=== PATIENT | female | born 1990 | race Hispanic/Latino ===

== ENCOUNTER 2016-04-14 17:10 | Emergency (ER) | payer OTHER ==
[~2016-04-14] VITALS: Ht 154.9 cm; Wt 100.0 kg
[~2016-04-14 17:10] MED LIST: LAMO150T2 PO
[2016-04-14 17:12] VITALS: BP 117/68; PULSE 70; RESP 16; O2SAT 98
[2016-04-14 18:01] LABS: BASOPHILS % (AUTO) 0.2 % (0-3); EOSINOPHILS % (AUTO) 2.1 % (0-5); MONOCYTES % (AUTO) 7.2 % (4-12); Mean Corpuscular Hemoglobin 30.6 pg (27.0-35.0); Mean Corpuscular Volume 87.7 fL (81-100); NEUTROPHILS % (AUTO) 65.9 % (40-74); Platelet Count 297 bil/L (150-400)
--- NOTE | 2016-04-14 18:05 | ED.REPORT ---
HPI- Female Date of Service Apr 14, 2016 ED Provider: Shanta Oneal MD Pt is a 25 y.o. female on Lamictal secondary to a hx of seizures, last known 2 years ago, who presents to the ED c/o suprapubic abdominal cramping onset 3 weeks ago and worsening yesterday. Pt was seen today at a clinic for a routine US, per pt they performed both transvaginal and abdominal US and stated that they "didn't see anything". They recommended the pt be seen by her PCP for follow-up but the pt states that her PCP office said she couldn't be seen until May 12 and they recommended she come to the ED .Pt denies vaginal bleeding , nausea, vomiting, and urinary symptoms. She reports a recent fever associated with a URI and dizziness with standing. Pt is Rh positive. Nursing Notes Stated Complaint: CONTRACTIONS AND CRAMPS Chief Complaint: Female Abdominal Pain Nursing Notes Reviewed: Yes Allergies: Coded Allergies: No Known Allergies (Verified , 04/14/16) Scheduled Lamotrigine (Lamotrigine) 150 Mg Tablet 150 MG PO BID General Time Seen by MD: 18:04 Chief Complaint Abdominal pain... (Suprapubic) Hx Obtained From: Patient Arrived By: Walk-in Sudden in Onset?: Yes Onset Occurred: More than a week ago... (3 weeks) Context of Onset: , 1st trimester Symptom Duration: Since onset Location: : Suprapubic Quality: Cramping, Painful Severity: Current: Severe RH Status / Blood Type: Rh Positive Similar Sx Previous: No Past Medical History Past Medical History Notes: Rh positive Past Medical History Epilepsy Past Surgical History Reports: Smoking History Never Smoker Social History Alcohol Use: Denies alcohol use Other Social History: Ambulatory Status Independent Review of Systems GI: Reports: Abdominal pain, Denies: Nausea, Vomiting Female: Reports: , Denies: Dysuria, Hematuria, Urinary frequency, Urinary urgency, Urination decreased, Urination increased, Vaginal bleeding - abnl Neurologic: Reports: Dizziness Complete sys rev & neg: except as marked. Physical Exam Initial Vital Signs Vital Signs (First) Date Time Temp Pulse Resp B/P Pulse Ox O2 Delivery O2 Flow Rate FiO2 04/14/16 17:12 36 70 16 117/68 98 Room Air Initial VS: Reviewed, Vital signs normal Head / Eyes: Atraumatic, Normocephalic Respiratory: Breath sounds normal, Clear to auscultation, No respiratory distress Cardiovascular: Regular rate & rhythm, Heart sounds normal, Intact distal pulses Extremities: Vascular intact, Neuro intact Skin: Warm, Dry, No cyanosis Neurologic: Alert, Oriented, Nonfocal Psychiatric: Mood/affect normal, Behavior normal, Normal thought content Female Genitourinary: Exam deferred General/Constitutional: Awake, Alert, Well appearing, Well developed, Well hydrated, Well nourished Appearance / Presentation: Positive: Uncomfortable Abdomen: Atraumatic, Soft, No distention Tenderness/Guarding/Rebound: Positive: Tender RLQ..., Tender suprapubic Interpretation & Diagnostics Lab Results Interpretation Result Diagram: 04/14/16 1755 04/14/16 1755 Test 04/14/16 17:48 04/14/16 17:49 04/14/16 17:55 Hold Urine Received (Received) Urine Color Yellow (YELLOW) Urine Appearance Hazy (CLEAR,HAZY) Urine pH 6.5 (5.0-8.0) Urine Specific Lena 1.025 (1.003-1.035) Urine Protein Negativemg/dL (NEG,TRACE) Urine Glucose (UA) Negativemg/dL (NEGATIVE) Urine Ketones Negativemg/dL (NEGATIVE) Urine Occult Blood Small (NEGATIVE) Urine Nitrite Negative (NEGATIVE) Urine Bilirubin Negative (NEGATIVE) Urine Urobilinogen Normalmg/dL (NORMAL) Urine Leukocyte Esterase Negative (NEGATIVE) Urine RBC 0-2/hpf (0-2) Urine WBC 0-5/hpf (0-5) Urine Epithelial Cells Moderate/hpf (NONE-MOD) Urine Crystals None seen (NONE SEEN) Urine Bacteria Moderate/hpf (NONE-FEW) Urine Hyaline Casts None/lpf (NONE) Urine Granular Casts None seen (NONE SEEN) Urine Waxy Casts None seen (NONE SEEN) Urine Red Blood Cell Casts None seen (NONE SEEN) Urine White Blood Cell Casts None seen (NONE SEEN) Urine Mucus Present (None Seen) Urine Trichomonas None seen (NONE SEEN) Urine Yeast None (NONE SEEN) Urinalysis Comment None Urine Culture Reflexed Indicated White Blood Count 8.2th/mm3 (3.8-10.1) Red Blood Count 4.08mil/mm3 (3.90-5.20) Hemoglobin 12.5g/dL (12.0-15.6) Hematocrit 35.8% (35.0-46.0) Mean Corpuscular Volume 87.7fL (81-100) Mean Corpuscular Hemoglobin 30.6pg (27.0-35.0) Mean Corpuscular Hemoglobin Concent 34.9% (32.0-37.0) Red Cell Distribution Width 12.3% (12.3-15.4) Platelet Count 297bil/L (150-400) Neutrophils (%) (Auto) 65.9% (40-74) Lymphocytes (%) (Auto) 24.1% (14-46) Monocytes (%) (Auto) 7.2% (4-12) Eosinophils (%) (Auto) 2.1% (0-5) Basophils (%) (Auto) 0.2% (0-3) Sodium Level 135mEq/L (134-144) Potassium Level 4.1mEq/L (3.5-5.2) Chloride Level 103mEq/L (97-108) Carbon Dioxide Level 19mmol/L (18-29) Blood Urea Nitrogen 7mg/dL (6-20) Creatinine 0.31mg/dL (0.57-1.00) Estimat Glomerular Filtration Rate 368mL/min (>59) Glucose Level 133mg/dL (60-99) Calcium Level 9.1mg/dL (8.5-10.1) HCG Beta Subunit [id number]/mL Hold Amador Top Tube Received (Received) Re-Eval/Medical Decision Med Decision/Clinical Course The patient presents with abdominal pain and cramping. She had an ultrasound in the community referred to the emergency department to rule out an ectopic. Her ultrasound here shows an IUP and a right ovarian cyst which would explain her pain. The patient has a follow-up appointment with Dr. Joe. Source of Hx: Old records Re-Evaluation/Progress : Time of Eval: 20:00 Re-Evaluation/Progress Note: Pt rechecked. Discussed US results and plan for discharge, pt understands and agrees with plan. Counseled Regarding: Diagnosis, Lab results, Need for follow-up, When/why to return to ED Discharge & Departure Impression: Primary Impression: Intrauterine Additional Impression: Ovarian cyst Laterality: right Qualified Code: N83.20 - Unspecified ovarian cysts Disposition: Home Discharge Condition All VS Reviewed: Yes Condition: Stable Patient Instructions: Ovarian Cyst (ED) Additional Instructions: Your pain and cramping is most likely due to your right ovarian cyst. Take Tylenol as needed for pain. Keep your follow-up appointment on the . Seek care if you begin to experience excessive bleeding, fever, or any new or concerning symptoms. Referrals: Bree Kingsley (PCP) Tanner Attestation Portions of this note were transcribed by Dnei Hassan. I, Dr. Oneal personally performed the history, physical exam and medical decision-making; I reviewed and confirmed the accuracy of the information in the transcribed note. Signed by: Tanner Leos, 04/14/2016 and 2005. copies to: Bree Kingsley Jena M MD Apr 14, 2016 18:05 DENI HASSAN Apr 14, 2016 18:19
[2016-04-14] MEDS ORDERED: HYDROmorphone 0.5 mg/0.5 mL iSecure Syringe IVPUSH PRN (18:15)
[2016-04-14] MEDS ORDERED: 0.9% Sodium Chloride 1,000 ML IV ONE (18:15)
[2016-04-14] MEDS ORDERED: HYDROcodone-APAP 5-325 mg Tablet PO ONE (18:40)
[2016-04-14 20:00] LABS: APPEARANCE,URINE HAZY (CLEAR,HAZY); COLOR,URINE YELLOW (YELLOW); OCCULT BLOOD,URINE SMALL (NEGATIVE); PH,URINE 6.5 (5.0-8.0); UROBILINOGEN,URINE NORMAL (NORMAL)
[2016-04-14 20:10] VITALS: BP 112/72; PULSE 71; RESP 16; O2SAT 97
--- NOTE | 2016-04-14 20:28 | DRSVH ---
PROCEDURE: US OB<14 WKS+OB TRANSVAG INDICATIONS: suprapubic pain OUTSIDE/PRIOR DATING DATA: Last menstrual period (LMP): Not available. LMP-based estimated date of delivery (JARETT): Not available. First dating scan (date and location): 04/14/2016. Estimated date of delivery (JARETT) from first dating scan: 11/27/2016. TECHNIQUE: Real-time scanning was performed of the fetus and maternal pelvic organs, with image documentation. Endovaginal scanning was also performed to better visualize the fetus and maternal ovaries. COMPARISON: [facility], US, PELVIS SONO TRANSVAGINAL (PNL), 09/28/2013, 15:24. [facility], US, US OB<14 WKS+OB TRANSVAG, 04/03/2016, 10:55. FINDINGS: Embryo: There is a single living intrauterine gestation. heart rate is 150 bpm. The patient ge stational age is 7 weeks and 5 days. Comments: The yolk sac is not well-seen. No perigestational bleeds. Measurement variability in dating: +/- 4 weeks by LMP, +/- 7 days by mean sac diameter (use before 6 weeks gestation if crown-rump length not able to be measured), +/- 5 days by crown-rump length (6-12 weeks gestation). Maternal organs: There is a 3.0 x 2.9 x 3.0 cm in the right ovarian cyst. IMPRESSION: 1. A single living IUP with the estimated gestational age of 7 weeks 5 days. Ultrasound JARETT 11/27/2016 . 2. A 3 cm right ovarian cyst. Dictated by: Yosef Horner M.D. on 04/14/2016 at 20:26 Approved by: Yosef Horner M.D. on 04/14/2016 at 20:26
== END 2016-04-14 20:11 | disposition home or self-care (01) ==
LOC: SED 17:10
DX: O34.80 Maternal care for other abnormalities of pelvic organs, unspecified trimester (principal); N83.201 Unspecified ovarian cyst, right side; G40.909 Epilepsy, unspecified, not intractable, without status epilepticus; Z3A.00 Weeks of gestation of pregnancy not specified

== ENCOUNTER 2016-11-18 05:15 | Inpatient (IN) | payer OTHER ==
[~2016-11-18] VITALS: Ht 154.9 cm; Wt 107.5 kg
[2016-11-18] MEDS ORDERED: PREN1TAB25 PO (05:48)
[2016-11-18] MEDS ORDERED: Lactated Ringer's 1,000 ML IV SCH ×2 (06:44→10:08)
[2016-11-18] MEDS ORDERED: Methylergonovine 0.2 mg/mL Inj IM PRN ×2 (06:45→10:10)
[2016-11-18] MEDS ORDERED: Sodium Citrate-Citric Acid 15 mL Solution PO SCH (06:45)
[2016-11-18] MEDS ORDERED: Carboprost 250 mCg/mL Inj IM PRN ×2 (06:45→10:10)
[2016-11-18] MEDS ORDERED: CeFAZolin Inj 2 GM in IV Premix 1 EACH IV SCH (06:45)
[2016-11-18] MEDS ORDERED: Hemorrhage Kit, Post Partum XX ONE ×2 (06:45→10:10)
[2016-11-18] MEDS ORDERED: Oxytocin 10 Unit/mL Inj IM PRN ×2 (06:45→10:10)
[2016-11-18 07:07] LABS: Mean Corpuscular Hemoglobin 28.1 pg (27.0-35.0); Mean Corpuscular Volume 83.9 fL (81-100)
--- NOTE | 2016-11-18 07:23 | PCM.HPANE ---
Patient Data Surgeon Admitting Provider:Emmanuel Jackson MD Attending Provider:Emmanuel Jackson MD Primary Care Physician:Kaylyn Joe MD Other Provider:Yoni Washington Anesthesia Reason for Visit Term TERM Ht/WT & BMI Body Mass Index Allergies Coded Allergies: No Known Allergies (Verified , 04/14/16) Past Anesthesia History Anesthesia History: Positive for:: Anesthesia Reactions (rash reaction to meds during C sections/ difficulty getting numb), Denies:: Fam Anesthesia Reaction, Fam Malignant Hypertherm, Malignant Hyperthermia Diabetes History Hx Diabetes?: No MRSA MRSA: No Medications Hypertension Medication: No Home Meds Incl Beta Mike: No Reported Medications Vit#96/Ferrous Fum/FA ( Tablet)1 Each Tablet1 Each PO DAILY 11/18/16 Lamotrigine 150 Mg [id number] Mg PO BID Ref 0 01/14/16 History History of ENT Problems?: No HEENT History: Denies:: Cataracts Dysphagia Hearing Problem Sinus Problem TMJ Denture Type: None Teeth Condition: Within Normal Limits Hx of Heart Problems?: No Cardiovascular History: Positive for:: Heart Murmur (since childhood "normal") Denies:: AICD Congestive Heart Failure Hypertension Pacemaker Rheumatic Fever Hx of Respiratory Problem?: No Respiratory History: Denies:: Asthma COPD Emphysema Oxygen Administration Pneumonia Tuberculosis Use of C-PAP Machine Hx Neurologic Problems?: Yes Neurological History: Positive for:: Seizures (Epilepsy (on Lamictal) last seizure 2012) Denies:: CVA Dementia Dizziness Headaches Multiple Sclerosis Parkinson's Disease Hx of GI Problems?: Yes Gastrointestinal History: Positive for:: Gastroesphageal Reflux Hx of Problems?: No Genitourinary History: Denies:: Kidney Stones Urinary Tract Infection Female Hx: Denies:: Currently Problems with Breasts? Skin History: Denies:: History Skin Disorders? Pressure Ulcers Hx Musculoskeletal Problems?: Yes Musculoskeletal History: Positive for:: Musculoskeletal Trauma (left carpal tunnel current admission problem) Denies:: Back Injury Joint Replacement Systemic Lupus Hx of Psycho/Social Problems?: No Psycho Social History: Denies:: Anxiety Hx Depression Hx Surgeries?: Yes (c sections x 2, mike, right carpal tunnel) Hx Any Other Health Problems?: Yes Other History: Positive for:: Hospitalization (Epilepsy (last seizure in 2011) ) Denies:: Cancer Endocrine Disease Thyroid Disease History Blood Transfusions: Denies:: Blood Transfusions Hx Diabetes: No Hx Alcohol Use: NoHx Substance Use: No Smoking Status: Never Smoker Have You Smoked inLast 12 mo: No Stop/Bang Treated for Sleep Apnea?: No Do You Have a CPAP Machine?: No Risk Assessment Category Category 1A: Patient has history of documented sleep apnea, and HAS NOT received any narcotic, sedative or anesthesia administration during this stay. Category 1B: Patient has history of documented sleep apnea, and HAS received any narcotic , sedative or anesthesia administration during this stay Category 2: Patient has SUSPECTED Obstructive Sleep Apnea, and HAS received any narcotic , sedative or anesthesia administration during this stay. Category 3: Patient has SUSPECTED Obstructive Sleep Apnea and HAS NOT received narcotic, sedative or anesthesia administration during this stay. Category 4: Outpatient in Procedural Areas with known sleep apnea or who screen positive for High Risk via the STOP/BANG questionnaire. Exam Exam General Appearance: Alert, Oriented X3, Cooperative, No Acute Distress HEENT/AIRWAY: MP 2 Lungs: Clear to Auscultation, Normal Air Movement Heart: Exam Unremarkable, Regular Rate/Rhythm, No Murmurs/Rubs/Gallops Meds/Labs/Diagnostics Labs Test 11/18/16 06:53 White Blood Count 6.6th/mm3 (3.8-10.1) Red Blood Count 3.92mil/mm3 (3.90-5.20) Hemoglobin 11.0g/dL (12.0-15.6) Hematocrit 32.9% (35.0-46.0) Mean Corpuscular Volume 83.9fL (81-100) Mean Corpuscular Hemoglobin 28.1pg (27.0-35.0) Mean Corpuscular Hemoglobin Concent 33.4% (32.0-37.0) Red Cell Distribution Width 13.0% (12.3-15.4) Platelet Count 238bil/L (150-400) Plan Impression Patient chart reviewed, patient interviewed and anesthestic plan with risks, benefits, and alternatives discussed, and informed consent obtained. ASA Physical Status: ASA3 Severe Disease (bmi 45) Anesthetic Plan: SAB Bene/Risks/Altern/Consents: Yes HP Complete Prior to Induction: Yes Other discussed early resolution of spinals and that we can add epi/duramorph to local anesthetic and have other pain medications ready if spinal were to wear off early Ho Fritz MD Nov 18, 2016 07:22
[2016-11-18] MEDS ORDERED: fentaNYL-PF 50 mCg/mL 2 mL Inj IVPUSH PRN (07:25)
[2016-11-18] MEDS ORDERED: Atropine 0.4 mg/mL Inj IV PRN (07:25)
[2016-11-18] MEDS ORDERED: EPHEDrine Sulfate 50 mg/mL Inj IVPUSH PRN (07:25)
[2016-11-18] MEDS ORDERED: Oxytocin 30 Units/500 mL LR 30 UNITS in IV Premix 1 EACH IV PRN (10:10)
[2016-11-18] MEDS ORDERED: Sodium Chloride LOK Flush 10 mL Syringe IVFLUSH PRN (10:10)
[2016-11-18] MEDS ORDERED: diphenhydrAMINE 50 mg Capsule PO PRN (10:10)
[2016-11-18] MEDS ORDERED: Acetaminophen IV 1,000 MG in IV Premix 1 EACH IV PRN (10:10)
[2016-11-18] MEDS ORDERED: LANOlin HPA 7 Gm Ointment TOPICAL PRN (10:10)
[2016-11-18] MEDS ORDERED: LAMO150T2 PO (10:16)
[2016-11-18] MEDS ORDERED: Succinylcholine Chloride 20 mg/mL 5 mL Inj ONE (12:17)
[2016-11-18] MEDS ORDERED: Ondansetron 2 mg/mL 2 mL Inj ONE (12:17)
[2016-11-18] MEDS ORDERED: fentaNYL-PF 50 mCg/mL 2 mL Inj ONE (12:17)
[2016-11-18] MEDS ORDERED: Morphine PF 1 mg/mL 10 mL Inj ONE (12:17)
--- NOTE | 2016-11-18 13:39 | PCM.ANEP1 ---
Post Anesthesia PACU Phase 1 Assessment Anesthetic Administered: GA Level of Alertness: Awake, talking BARRAZA's with Equal Strength: Yes Pain: No Nausea or Vomiting: No CV Function & Hydration Stable: Yes Airway Device: NONE Oxygen Delivery: Nasal Cannula Lungs: Clear to Auscultation, Normal Air Movement Dermatome Level: L3,4 (Thigh) PACU Phase 2 Assessment Complications: No Follow up Care: No Patient Instructions Provided: N/A Ho Fritz MD Nov 18, 2016 13:39
--- NOTE | 2016-11-18 15:41 | OP ---
[address] [address] OPERATIVE REPORT PATIENT: PAPITO BEAL : 1990 MR#: [id number] ADMIT: 11/18/2016 JOB ID: [id number] DATE OF SURGERY: 11/18/2016 PROCEDURE: 1. Repeat low transverse section. 2. Bilateral tubal ligation. PREOPERATIVE DIAGNOSIS(ES): 1. Term at 39 weeks. 2. History of two prior deliveries. 3. Desires sterilization. POSTOPERATIVE DIAGNOSIS(ES): 1. Term at 39 weeks. 2. History of two prior deliveries. 3. Desires sterilization. SURGEON: Emmanuel Jackson MD. PHYSICIAN/INTERNIST: Kaylyn Joe MD. Assistance of Dr. Joe was necessary in this case because of severe adhesions and the need for client services assistant's help in lysis of adhesions, providing proper exposure and visualization of anatomic structures and delivery of the . ANESTHESIOLOGIST: Ho Fritz MD. ANESTHESIA: Spinal. ESTIMATED BLOOD LOSS: 700 mL. ESTIMATED URINE OUTPUT: 400 mL. FLUIDS: 1100 mL of lactated Ringer. COMPLICATIONS: None. FINDINGS: Delivered a female with weight 9 pounds and 15 ounces, Apgars 9 at one minute and 9 at five minutes. The patient had extensive adhesions between the bladder and lower uterine segment, as well as between the lower uterine segment and anterior abdominal wall. DESCRIPTION OF PROCEDURE: The patient was brought to the operating room, where she underwent spinal anesthesia without difficulty. The patient was placed in a dorsal supine position with a leftward tilt. She was prepped and draped in the usual surgical fashion. The patient received preoperative antibiotics. Time-out was performed verifying correct patient, correct procedure. Pfannenstiel skin incision was made with a scalpel over the prior scar and carried down to the underlying layer of rectus muscle fascia using Bovie. The rectus muscle fascia was incised in the midline with the Bovie and the incision was then laterally extended using Bovie and Steen scissors. The upper aspect of the incision was grasped with two Keyon clamps, tented up, and rectus muscle fascia was found to be adherent to the underlying rectus muscle. It was using Bovie, moist laparotomy sponge, Metzenbaum scissors, Steen scissors, scalpel. After appropriate dissection was completed superiorly, using two Keyon clamps the anterior aspect of the incision was grasped and the rectus muscle fascia was from the underlying rectus muscle using Bovie and Steen scissors. The lysis of adhesions was provided in the middle sagittal plane. The peritoneum was entered. Using Metzenbaum scissors the dissection was done from the lower uterine segment the bladder from it. When the bladder was brought down sufficiently, the bladder blade was introduced and lower segment transverse uterine incision was made with a scalpel and extended laterally with the bandage scissors. The head of the was identified. The bladder blade was removed and with a fundal pressure, male was atraumatically delivered. Delayed cord clamping was allowed for 60 seconds. The cord was clamped and cut, and the was handed off to the awaiting choral teacher. The cord blood was sent. The uterus was removed by applying fundal massage and gentle traction and discarded. The uterus was exteriorized and cleared from all the blood clots and debris with a dry laparotomy sponge. The uterine incision was repaired with two layers of Monocryl. Bilateral tubal ligation was performed. The patient's right tube was identified, tented up. The mesosalpinx was perforated with Bovie, and two 0 chromic sutures were passed through it. The tube was double suture ligated proximally and distally 3 cm from the cornua of the uterus and about 4 cm from the proximal and distal parts of the excision. The fallopian tube was excised and sent to Pathology. Good hemostasis was achieved. The same was done on the patient's contralateral side. The pelvis was irrigated with warm normal saline, and the uterus was repositioned back into the pelvis. Slight oozing from the dissection from the lower uterine segment was controlled with application of the FloSeal. The rectus muscles were reapproximated in the midline with three interrupted 2-0 Vicryl sutures. The rectus muscle fascia was closed with 0 Vicryl. Four interrupted 3-0 Vicryl sutures were placed to reapproximate Torres fascia and subcuticular tissue. The skin was closed with belinda. Hemostatic dressing was applied. The patient was repositioned back into the supine position. She tolerated the procedure well and was transferred to the recovery room in stable condition.
[2016-11-18] MEDS: hydrOXYzine Pamoate 25 mg Capsule PO PRN (19:50)
[2016-11-18] MEDS ORDERED: oxyCODONE-Acetamin 5-325 mg Tablet PO PRN (21:10)
[2016-11-19 07:25] LABS: Mean Corpuscular Hemoglobin 28.8 pg (27.0-35.0); Mean Corpuscular Volume 83.3 fL (81-100)
--- NOTE | 2016-11-19 08:03 | PCM.PNOBPP ---
Subjective Date of Service Nov 19, 2016 Post : Repeat Ceserean Delivery Visit History 26 yo now who presented at 39.2 GA for repeat C/S. Subjective Post op day #1. Having increased incisional this AM. Denies any n/v or fevers. Has not been able to pass flatus yet. She is otherwise happy with the baby and well and was able to tolerate PO intake last night. Lochia: Normal Pain Management: PO pain meds, Surgical Pain Not Controlled (moderately uncontrolled) Gastrointestinal: No N/V Postop Activity: Ambulating in Room Only Group B Strep Results: Not done Rubella: Immune Blood Type: O (positive) RH Type: Positive Labs Laboratory Tests 11/19/16 07:02: White Blood Count 9.5, Red Blood Count 3.71, Hemoglobin 10.7, Hematocrit 30.9, Mean Corpuscular Volume 83.3, Mean Corpuscular Hemoglobin 28.8, Mean Corpuscular Hemoglobin Concent 34.6, Red Cell Distribution Width 13.2, Platelet Count 226 Exam Vital Signs Vital Signs 111/75 75 p 18 36.4c Vital Signs: VS reviewed, stable Exam Abdomen: Fundus firm, Abdomen appropriately tender, Other (Mildly distended) : Voiding without difficulty Extremities: No tenderness/swelling, No edema Lungs: Clear to Auscultation, Normal Air Movement Heart: Regular Rate/Rhythm, No Murmurs/Rubs/Gallops General: Alert, Oriented X3, Cooperative, Mild Distress (pain) Surgical Wound : Incision General Appearence: Well Approximated, Wound under dressing Dressing & Drainage Status: Dry & Intact, No Odor OB Post Assessment/Plan Problems: (1) delivery due to maternal disorder, delivered, current hospitalization Status: Acute ICD Code: O99.89 (2) Sterilization Status: Acute ICD Code: Z30.2 Pain Evaluation: Pain not Controlled Post plan: Continue routine post care, Discharge home tomorrow Plan: Encourage early ambulation Attending Statement I saw patient and examined her. I agree with above plan. Giovany Harris DO Nov 19, 2016 08:03 Arlet Robledo MD Nov 22, 2016 14:15
[2016-11-19] MEDS: Ascorbic Acid 500 mg Tablet PO SCH (08:06)
[2016-11-19] MEDS: lamoTRIgine 100 mg Tablet PO SCH ×2 (08:24→20:24)
[2016-11-19] MEDS: hydrOXYzine Pamoate 25 mg Capsule PO PRN (21:36)
[2016-11-20] MEDS: hydrOXYzine Pamoate 25 mg Capsule PO PRN ×2 (03:04→09:14)
[2016-11-20] MEDS: Ascorbic Acid 500 mg Tablet PO SCH (08:14)
--- NOTE | 2016-11-20 08:25 | PCM.DIOB ---
Bailey Gallagher DO 11/20/16 0825: Obstetrical Disch Instruction Date of Service: Nov 20, 2016 Dates of Hospitalization Date of Hospital Admission Nov 18, 2016 at 05:15 Providers Admitting Physician: Emmanuel Jackson MD Primary Care Physician: Kaylyn Jeo MD Attending Physician: Emmanuel Jackson MD Discharge Diagnosis Discharge Diagnosis delivery Term at 39 weeks. History of two prior deliveries. Scheduled sterilization Post Operative diagnosis delivery Term at 39 weeks. History of two prior deliveries. Scheduled sterilization Problems: (1) delivery due to maternal disorder, delivered, current hospitalization Status: Acute ICD Code: O99.89 (2) Sterilization Status: Acute ICD Code: Z30.2 Diet Discharge Diet: No restrictions Activity Discharge Activity-General: Pelvic Rest for 6 weeks, Try not to overdue, Balance rest and activity, Ice incision 3-5 time/day for 20min, Activity as pain allows, Activity as energy allows, No lifting >10 pounds for 4-6 weeks Dressing and Incisional Care Dressing Care: Change soiled dressing Hygiene: May shower, DO NOT soak incision under water, NO bathtub, hot tub or whirlpool, Sitz bath Additional Instructions Discharge Instructions Continue your vitamin. Do not take more pain medication (Vicodin) than is necessary -- less is better. Vicodin pills have Tylenol (acetaminophen) in them at 325mg per pill. Do not take Tylenol in addition to your pain medication but should take one or the other. Both iron and Vicodin can give you constipation so you have also been given a prescription for docusate to keep you regular. Be sure to follow up in [address] Jackson at [facility] and then again in [address] Joe. Pelvic rest for 6 weeks (nothing per vagina including intercourse, tampons) If you have a fever greater than 100.4, please call [facility]. There is always someone composition siding worker to talk to. If you have an increase in bleeding, call [facility]. If you have a lot of bleeding suddenly, especially if you have symptoms of dizziness & weakness with it, get emergency help. When you see [facility] in two weeks, you will be informed of the results of all the labs. If you start experiencing extreme depression, especially if you feel that you are a danger to yourself or your family, seek emergency help. You have been through a lot -- BE SURE TO TAKE CARE OF YOURSELF. Follow Up Plan Follow Up Plan [address] Jackson and [address] Joe Call your provider for: Fever or Chills, Shortness of breath, Heavy vaginal bleeding, Heavy bleeding, Epigastric pain, Excessive constipation, Vaginal discomfort, Red painful breasts Arlet Robledo MD 11/22/16 1432: Obstetrical Disch Instruction Attending Statement I saw patient and examined her. I agree with above plan. Bailey Gallagher DO Nov 20, 2016 08:25 Arlet Robledo MD Nov 22, 2016 14:32
[2016-11-20] MEDS ORDERED: HYDR-3090 PO (08:27)
[2016-11-20] MEDS ORDERED: IBUP800T28 PO (08:27)
[2016-11-20] MEDS ORDERED: DOCU-41 PO (08:27)
--- NOTE | 2016-11-20 08:45 | PCM.DC.OB ---
Obstetrical Discharge Summary Date of Service Nov 20, 2016 Date of hospital admission Nov 18, 2016 at 05:15 Date of Discharge: Nov 20, 2016 Providers Admitting Physician: Vickie Richardson MD Primary Care Physician: Kaylyn Joe MD Attending Physician: Vickie Richardson MD Problems: (1) delivery due to maternal disorder, delivered, current hospitalization Status: Acute ICD Code: O99.89 (2) Sterilization Status: Acute ICD Code: Z30.2 Invasive procedures delivery See procedure note for details. Date of Procedure: Nov 18, 2016 Brief History and Physical: This is a 26-year-old now at 39 weeks and 2 days with a JARETT of 11/26/16 by ultrasound at 7 weeks 5 days who presented for scheduled repeat section and scheduled tubal ligation. Patient has a history of gestational diabetes and epilepsy currently on on Lamictal. Her last seizure was over 2 years and she took her Lamictal prior to admission. Patient was GBS negative. BP 108/57 Pulse 97 Respiration 20 Temp 37.2 Constitutional: Well-developed, Well-nourished, obese HEENT: Atraumatic Lungs: Clear to Auscultation Heart: Normal S1, Normal S2, Murmur (II/ flow murmur) normal rate and rhythm Fundus Firm at the level of the umbilicus. Abdomen: Nontender Extremities: Warm, No Edema, Tenderness/Swelling Noted Neurological/Psychiatric: Alert, Oriented X3 Neuro: Normal DTRs, No Clonus noted Hospital Course: This is a 26-year-old now at 39 weeks and 2 days with a JARETT of 11/26/16 by ultrasound at 7 weeks 5 days who presented for scheduled repeat section and scheduled tubal ligation. Patient has a history of gestational diabetes and epilepsy currently on on Lamictal. Her last seizure was over 2 years and she took her Lamictal prior to admission. She was taken operating room and was given a spinal epidural by anesthesia. delivery was performed without complication and EBL of 700 mL. Female weighing 9 lbs. 15 oz. with Apgars 9 and 9 was delivered. A bilateral tubal ligation followed procedure. Postop day 1 was without incident or complication. Patient is currently postop day 2 and is medically ready for discharge. At the time of discharge, the patient was medically stable. Incision was examined and was well approximated without erythema or induration. She was ambulating independently, voiding without pain, having flatus, had light lochia , breast-feeding well and tolerating oral feedings. She denied headache, blurred vision, chest pain, shortness of breath, upper abdominal pain, heavy bleeding vaginally, and pain in legs or calves. Docusate Sodium (Colace) 100 Mg Capsule 100 MG PO BID PRN PRN For Constipation Prescribed by: JEET GALLAGHER DO Hydrocodone-Acetaminophen 5-300 mg (Hydrocodone-Acetaminophen 5-300 mg) 1 Each Tablet 1 TABLET PO Q4H PRN PRN For Pain Prescribed by: JEET GALLAGHER DO Ibuprofen (Ibuprofen) 800 Mg Tablet 800 MG PO TID PRN PRN For Pain Prescribed by: JEET GALLAGHER DO Lamotrigine (Lamotrigine) 150 Mg Tablet 150 MG PO BID Prescribed by: VICKIE RICHARDSON MD Vit#96/Ferrous Fum/FA ( Tablet) 1 Each Tablet 1 EACH PO DAILY ( Reported) Last Taken: Unknown Dose on 11/17/16 Disposition Home Follow-up plan Follow-up in [address] Richardson and in [address] Joe Discharge Diet: No restrictions Discharge Activity-General: Pelvic Rest for 6 weeks, Try not to overdue, Be up and about, Balance rest and activity, Ice incision 3-5 time/day for 20min, Activity as pain allows, Activity as energy allows, No lifting >15 pounds for 2 weeks Attending Statement: I saw patient and examined her. I agree with above plan. Jeet Gallagher DO Nov 20, 2016 08:45 Arlet Robledo MD Nov 22, 2016 14:33
[2016-11-20] MEDS: lamoTRIgine 100 mg Tablet PO SCH (09:14)
[2016-11-20 10:35] VITALS: BP 117/58; PULSE 75; RESP 20
--- NOTE | 2016-11-20 15:23 | PATH ---
SURGICAL PATHOLOGY Attending Physician:Emmanuel Jackson MD CASE STATUS: Signed Out PATIENT NAME: PAPITO WEEKS PID: [id number] : 1990 DATE COLLECTED:11/18/2016 23:16 SPECIMEN: 1: Fallopian Tube, Sterilization 2: Fallopian Tube, Sterilization CLINICAL HISTORY: REPEAT ELECTIVE CAESAREAN SECTION WITH BILATERAL TUBAL LIGATION 1). RIGHT FALLOPIAN TUBE SEGMENTS 2). LEFT FALLOPIAN TUBE SEGMENTS FINAL DIAGNOSIS: 1.RIGHT FALLOPIAN TUBE, SEGMENT, STERILIZATION: COMPLETE CIRCUMFERENTIAL SECTION OF FALLOPIAN TUBE. NO EVIDENCE OF NEOPLASIA. 2.LEFT FALLOPIAN TUBE, SEGMENT, STERILIZATION: COMPLETE CIRCUMFERENTIAL SECTION OF FALLOPIAN TUBE. NO EVIDENCE OF NEOPLASIA. ICD10 Z30.2 GROSS DESCRIPTION: The specimens are received unfixed, labeled with the patient's name, and sublabeled as the following: (1) R. fallopian segment; (2) L fallopian. (1) The specimen consists of a non-fimbriated segment of fallopian tube (length-2.5, diameter-0.3 cm). The serosa is rogers-pink smooth and shiny. The lumen is rogers and unremarkable. Section code: (1A) fallopian tube segment, serially sectioned, customer response representative. (2) The specimen consists of a non-fimbriated segment of fallopian tube (length-1.7, diameter-0.4 cm). The serosa is rogers-pink smooth and shiny. The lumen is rogers and unremarkable. Section code: (2A) fallopian tube segment, serially sectioned, customer response representative. 11/19/16 MICRO DESCRIPTION: See diagnosis. ICD-9 CODES: CPT CODES: 1: 81466 2: 88039 Electronically Signed Out Priti King MD [facility] [address], [place] [address] Technical component performed at [facility], [facility] [address], [place], [address]
== END 2016-11-20 13:00 | disposition home or self-care (01) | DRG 766 ==
LOC: FBC 05:15 → EDSTATUS 07:15
PROVIDERS: ADMIT Legal Medicine; ATTEND Legal Medicine
PROC: 0UB70ZZ Excision of Bilateral Fallopian Tubes, Open Approach (ICD-10-PCS; 2016-11-18)
PROC: 0DNW0ZZ Release Peritoneum, Open Approach (ICD-10-PCS; 2016-11-18)
PROC: 10D00Z1 Extraction of Products of Conception, Low, Open Approach (ICD-10-PCS; principal; 2016-11-18 07:15)
DX: O34.211 Maternal care for low transverse scar from previous cesarean delivery (principal); O24.419 Gestational diabetes mellitus in pregnancy, unspecified control; O99.353 Diseases of the nervous system complicating pregnancy, third trimester; G40.909 Epilepsy, unspecified, not intractable, without status epilepticus; Z3A.39 39 weeks gestation of pregnancy; Z37.0 Single live birth; Z30.2 Encounter for sterilization; N73.6 Female pelvic peritoneal adhesions (postinfective)